=== PATIENT | male | born 1990 | race African-American/Black ===

== ENCOUNTER 2024-04-26 12:09 | Emergency (ER) | payer SELFPAY ==
[2024-04-26 12:09] VITALS: BP 125/97; PULSE 87; RESP 16; TEMP 37.3; O2SAT 98; BMI 26.7
[2024-04-26 12:22] VITALS: O2SAT 99
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
--- NOTE | 2024-04-26 12:57 | RAD_ITS ---
STUDY: X-RAY - LEFT TIBIA AND FIBULA REASON FOR EXAM: Male, 34 years old. Injury / Pain. TECHNIQUE: 2 views of the left tibia and fibula were obtained. COMPARISON: None. FINDINGS: Normal visualized tibia. Normal visualized fibula. There is no demonstrated acute fracture. The soft tissue structures are unremarkable. RAD/Tibia & Fibula 2 Views IMPRESSION: Normal x-ray examination of the left tibia and fibula. Electronically Signed: Davy Weber MD at 13:35 EDT ,
[2024-04-26] MEDS: Ibuprofen 600 MG Tablet PO (13:12)
[2024-04-26 14:09] VITALS: BP 119/82; PULSE 62; RESP 16; O2SAT 98
[2024-04-26 14:27] VITALS: BP 119/82; PULSE 62; RESP 16; TEMP 36.6; O2SAT 98
== END 2024-04-26 14:31 | disposition home or self-care (01) ==
PROVIDERS: Emergency Provider Emergency Medicine; Visit Provider Emergency Medicine
DX: S40.012A Contusion of left shoulder, initial encounter (principal); S46.912A Strain of unspecified muscle, fascia and tendon at shoulder and upper arm level, left arm, initial encounter; F17.210 Nicotine dependence, cigarettes, uncomplicated; V59.88XA Occupant (driver) (passenger) of pick-up truck or van injured in other specified transport accidents, initial encounter
CPT/HCPCS: 73590; 99282

== ENCOUNTER 2024-09-22 08:34 | Emergency (ER) | payer MEDICAID, SELFPAY ==
[2024-09-22] VITALS (7 sets, daily range): BP systolic 109–142; BP diastolic 75–95; PULSE 75–86; RESP 11–18; TEMP 36.8–37.1; O2SAT 96–99; BMI 28.1
--- NOTE | 2024-09-22 09:05 | RAD_ITS ---
PROCEDURE: CHEST 1 VIEW (PORTABLE) REASON FOR EXAM: 34-year-old male, chest pain/tightness x1 hour, history of asthma. TECHNIQUE: Frontal view of the chest. COMPARISON: None. FINDINGS: The heart size is normal. The lungs are clear. No focal consolidation, pleural effusion or pneumothorax. The bones are unremarkable. RAD/Chest 1 View (Portable) IMPRESSION: NEGATIVE CHEST. Reading Location: [id number]
[2024-09-22 09:15] LABS: Absolute Lymphocyte Count 1.88 X10^3/uL (0.83-4.51); Absolute Neutrophil Count 2.2 X10^3/uL (2.0-7.7); Basophil# 0.03 X10^3/uL; Basophil% 0.6 % (0-1); Eosinophils% 7.8 % (0-5); Hematocrit 39.8 % (40-54); Hemoglobin 12.6 g/dL (13.0-16.5); Lymphocyte # 1.88 X10^3/ul (0.83-4.51); Lymphocyte % 36.6 % (19-41); Mean Corp Hgb Conc 31.7 g/dL (32-36); Mean Corpuscular Hgb 23.3 pg (27.0-32.0); Mean Corpuscular Volume 73.7 fL (80-94); Mean Platelet Vol. 10.4 fl (6.2-12.0); Monocyte# 0.65 X10^3/uL; Monocyte% 12.7 % (0-10); NRBC Flagged by Analyzer 0 % (0-5); Neutrophil # 2.15 X10^3/uL (2.7-7.7); Neutrophil % 41.9 % (47-70); Platelet Count 209 K/mm3 (150-450); RBC Distribution Width CV 15.1 % (11.6-14.6); RBC Distribution Width SD 39.4 fl (35.1-43.9); White Blood Count 5.1 K/mm3 (4.4-11.0)
--- NOTE | 2024-09-22 10:13 | EDS_ITS ---
HPI History of Present Illness Chief Complaint: Chest Pain Informant: patient and spouse/S.O. Narrative Narrative: 34-year-old male presenting to the emergency room with the chief complaint of chest pain. Patient states that during the night he began to have what he describes as heartburn in the center of his chest. This morning he woke up suddenly with significant discomfort in the mid chest. He was not coughing. He denies any fever or diarrhea. No vomiting. No coronary artery disease history. He states that while he was in longterm he was diagnosed with sarcoidosis. He states that he was on medications for it then but has not been on any since. Yanira silvestre notes that multiple family members have been sick recently. He notes that he is not 1 who gets typical indigestion. PFSH PFSH Home Medications ?Medication ?Instructions ?Recorded ?Last Taken ?Type cyclobenzaprine 10 mg tablet 10 mg PO TID PRN Muscle S pasm #20 04/26/24 Unknown Rx TABLETS ibuprofen 600 mg tablet 600 mg PO Q6H PRN PRN pain # 20 04/26/24 Unknown Rx TABLETS omeprazole 20 mg capsule,delayed 20 mg PO BID #28 caps 09/22/24 Unknown Rx release Allergy/AdvReac Type Severity Reaction Status Date / Time No Known Allergies Allergy Verified 09/22/24 08:35 Social History Smoking Status: Current every day smoker tobacco type: cigarettes ROS ROS ED Constitutional Constitutional ED: Denies chills, fever(s) or weight loss Eyes Eyes: Denies change in vision or diplopia ENT ENT ED: Denies ear pain, rhinorrhea or sore throat Cardiovascular Cardiovascular: Reports chest pain; Denies orthopnea, palpitations or racing heartbeat Respiratory/Chest Respiratory/Chest: Denies cough, dyspnea or orthopnea Gastrointestinal Gastrointestinal: Denies abdominal pain, diarrhea, nausea or vomiting Genitourinary Genitourinary ED: Denies dysuria, hematuria or urinary frequency Musculoskeletal Musculoskeletal: Denies arthralgias or myalgias Integumentary Denies abscess or rash Neurologic Neurologic: Denies headache(s) or weakness Psychiatric Psychiatric: Denies anxiety, depression, suicidal ideation or suicidal thoughts Endocrine Endocrinology: Denies polydipsia, polyphagia or polyuria Allergic/Immunologic Allergic/Immunologic ED: Denies mouth swelling, tongue swelling or urticaria EXAM Physical Exam Const Vital Signs: 09/22/24 08:35 09/22/24 09:06 09/22/24 09:07 Temperature 98.7 F Temperature Source Oral Pulse Rate 86 Respiratory Rate 18 Respiratory Effort Normal Non-Labored Blood Pressure 142/88 H Blood Pressure Mean 106 Pulse Ox 98 98 Oxygen Delivery Method Room Air Room Air 09/22/24 09:35 09/22/24 10:00 09/22/24 11:00 Temperature Temperature Source Pulse Rate 76 75 75 Respiratory Rate 11 L 13 16 Respiratory Effort Blood Pressure 128/94 H 125/87 H 109/75 Blood Pressure Mean 105 99 86 Pulse Ox 96 96 97 Oxygen Delivery Method Room Air Room Air 09/22/24 12:00 09/22/24 12:10 Temperature 98.2 F Temperature Source Pulse Rate 75 81 Respiratory Rate 16 16 Respiratory Effort Blood Pressure 135/95 H 135/95 H Blood Pressure Mean 108 108 Pulse Ox 98 99 Oxygen Delivery Method Positive well nourished and well developed General Appearance ED: well developed HEENT Reports normocephalic, head/scalp atraumatic and moist mucous membranes Eyes PERRL and EOMs intact bilaterally Neck no lymphadenopathy, supple and no JVD Resp normal respiratory effort and clear to auscultation bilaterally Cardio regular rate, regular rhythm and no murmurs GI normal to inspection, nondistended, normoactive bowel sounds and non-tender Palpation: soft Back/Spine no CVA tenderness and normal ROM Extremity normal to inspection General Extremety ED: Negative for edema General Extremity: Negative for edema Neuro oriented x3 and CN's II-XII intact bilaterally Sensorium / Orientation: alert Motor Exam: strength 5/5 throughout Psych mental status grossly normal Mood & Affect: Negative for depressed or tearful Skin no rashes or lesions noted and no wounds MDM MDM MDM Narrative Medical decision making narrative: Differential diagnosis includes but not limited to GERD esophageal spasm coronary artery disease acute coronary syndrome pulmonary embolism aortic dissection pneumonia pneumothorax Patient received a GI cocktail and Protonix. Patient's white count is 5.1 hemoglobin 12.6 platelet count is 209. Patient's EKG demonstrates a normal sinus rhythm with a ventricular rate of 76 bpm with no concerning ST segments. My independent interpretation of the chest x-ray is no acute process. Patient is influenza A positive. 2 sets of cardiac enzymes are negative. D-dimer is elevated therefore CTA of the chest was obtained. This is read by radiology reviewed by myself. There is no evidence of pulmonary embolism. There is some evidence of pneumonitis. Question of this is related to the influenza versus a possible aspiration. Clinically he is not have any difficulty breathing his symptoms have subsided. His lung sounds are clear. Think is reasonable that the patient be discharged home. We talked about home treatment for influenza. Him also going to place him on omeprazole twice daily. We talked about e sophageal spasm as a possibility of his symptomology today versus aspiration versus resolved bronchospasm. When asked that he establish primary care follow- up if symptoms continue. He and his note understanding of the plan and comfortable with. History & Record Review Discussion w/independent historian: Patient and Significant other Lab Data Attestation: I reviewed the patient's lab results. Labs: Laboratory Results - last 24 hr 09/22/24 09/22/24 09/22/24 09:00 09:08 11:17 WBC 5.1 RBC 5.40 Hgb 12.6 L Hct 39.8 L MCV 73.7 L MCH 23.3 L MCHC 31.7 L RDW Std Deviation 39.4 RDW Coeff of Christiano 15.1 H Plt Count 209 MPV 10.4 Immature Gran % (Auto) 0.400 Neut % (Auto) 41.9 L Lymph % (Auto) 36.6 Gilchrist % (Auto) 12.7 H Eos % (Auto) 7.8 H Baso % (Auto) 0.6 Absolute Neuts (auto) 2.2 Absolute Lymphs (auto) 1.88 Nucleated RBC % 0 D-Dimer Quant (PE/DVT) 0.60 H* Sodium 141 Potassium 3.7 Chloride 106 Carbon Dioxide 28.0 Anion Gap 7 BUN 8 Creatinine 1.11 Estim Creat Clear Calc 97.08 Est GFR (MDRD) Af Amer 96 Est GFR (MDRD) Non-Af 80 BUN/Creatinine Ratio 7.2 L Glucose 108 H Calcium 8.5 Troponin I High Sens < 3 L < 3 L Radiography Diagnostic Testing: Clinical Impression(s) from Imaging Studies Chest X-Ray 09/22/24 09:05 IMPRESSION: NEGATIVE CHEST. Reading Location: [facility] Chest CTA 09/22/24 10:37 IMPRESSION: 1. No CT evidence of acute pulmonary emboli. 2. Mild bronchial wall thickening and bilateral centrilobular ground-glass opacities, which is nonspecific and may be seen in infectious/inflammatory pneumonitis, or be secondary to allergic bronc hopulmonary aspergillosis (ABPA). Clinical and laboratory correlation recommended. 3. Left upper lobe pulmonary nodule, likely infectious/inflammatory in etiology. Correlation with prior chest imaging is recommended if available. If not available, follow-up chest CT in 3 months is recommended to evaluate for stability/resolution. One or more dose reduction techniques were used (e.g., Automated exposure control, adjustment of the mA and/or kV according to patient size, use of iterative reconstruction technique). Reading Location: [facility] EKG Initial EKG: Attestation: I personally reviewed and interpreted this EKG as follows: Comments: Normal sinus rhythm ventricular rate of 76 bpm Discharge Plan Triage Chief Complaint: Chest Pain ED Provider: Eric Fishman Dx/Rx/DC Orders Clinical Impression: Influenza A, GERD (gastroesophageal reflux disease), Esophageal spasm Instructions: ED GERD (Adult), ED Influenza (Adult) Prescriptions: New omeprazole 20 mg capsule,delayed release(DR/EC) 20 mg PO BID Qty: 28 0RF No Action ibuprofen 600 mg tablet 600 mg PO Q6H PRN PRN (Reason: pain) Qty: 20 0RF cyclobenzaprine 10 mg tablet 10 mg PO TID PRN (Reason: Muscle Spasm) Qty: 20 0RF Primary Care Provider: Care Physician,No Primary Referrals: Doug Lr DO [Med Staff - Active Staff] - As Needed (For gastroenterology) Care Physician,No Primary [Primary Care Provider] - Activity Restrictions/Additional Instructions: If continued symptoms I would strongly recommend following up with gastroenterology (see the referral to Dr. Lr) for possible EGD. Given your history of sarcoidosis I would recommend establishing with a primary care doctor. Print Language: Turkish Disposition Disposition: Home, Self Care Discharge Date/Time: 09/22/24 12:17
[2024-09-22 10:15] LABS: Anion Gap 7 (5-15); BUN 8 mg/dL (7-18); BUN/Creat Ratio 7.2 RATIO (10-20); Calcium,Total 8.5 mg/dL (8.5-10.1); Chloride 106 mmol/L (98-107); Creatinine, Serum 1.11 mg/dL (0.70-1.30); EST Glomerular Filtration Rate 80 mL/min (>60); Est Glom Filt Rate - Afr Amer 96 mL/min (>60); Estimated Creatinine Clearance 97.08 ml/min; Glucose 108 mg/dL (74-106); Potassium 3.7 mmol/L (3.5-5.1); Sodium Level 141 mmol/L (136-145); Troponin-I HS (w/2H Reflex) < 3 pg/mL (3.0-78.0)
[2024-09-22] MEDS: Mag Hydrox/Al Hydrox/Simeth 30 ML UDC PO (10:24)
[2024-09-22] MEDS: Lidocaine 2% Viscous15 ML UDC 15 ML PO (10:24)
--- NOTE | 2024-09-22 10:37 | CT_ITS ---
PROCEDURE: CTA CHEST W/WO CONTRAST REASON FOR EXAM: 34-year-old male, concern for pulmonary embolism. TECHNIQUE: CTA imaging of the chest with intravenous contrast. 3D reconstructions. CONTRAST: Administered. COMPARISON: Same day chest radiograph. FINDINGS: Hardware: None. Lymph nodes: No mediastinal, hilar or axillary lymphadenopathy. Heart: The heart is normal in size without pericardial effusion. No coronary artery calcifications. The great vessels are normal in caliber. RV/LV Diameter Ratio: N/A Thoracic Aorta: No thoracic aortic aneurysm or dissection. Pulmonary Vessels: No evidence of acute pulmonary emboli through the major subsegmental branches. Most Proximal Level of Embolus (if embolus present): N/A Lungs and Airways: The central airways are patent. Mild bronchial wall thickening and bilateral centrilobular ground-glass opacities, greatest within the upper lobes. Small left upper lobe pulmonary nodule measuring 1.1 cm (series 2, image 206). No pleural effusion or pneumothorax. Upper Abdomen: Visualized portions of the upper abdominal viscera are unremarkable. Bones: No aggressive osseous lesion. CT/CTA Chest W/WO Contrast IMPRESSION: 1. No CT evidence of acute pulmonary emboli. 2. Mild bronchial wall thickening and bilateral centrilobular ground-glass opac ities, which is nonspecific and may be seen in infectious/inflammatory pneumonitis, or be secondary to allergic bronchopulmona ry aspergillosis (ABPA). Clinical and laboratory correlation recommended. 3. Left upper lobe pulmonary nodule, likely infectious/inflammatory in etiology . Correlation with prior chest imaging is recommended if available. If not available, follow-up chest CT in 3 months is recommended to evaluate for stability/resolution. One or more dose reduction techniques were used (e.g., Automated exposure contr ol, adjustment of the mA and/or kV according to patient size, use of iterative reconstruction technique). Reading Location: [id number]
[2024-09-22] MEDS: Pantoprazole Sodium 40 MG Tablet PO (11:06)
[2024-09-22 11:12] LABS: Reflex Troponin-HS? (from REC) Y
[2024-09-22 11:38] LABS: Troponin-I HS < 3 pg/mL (3.0-78.0)
== END 2024-09-22 12:17 | disposition home or self-care (01) ==
PROVIDERS: Emergency Provider Emergency Medicine; Visit Provider Emergency Medicine
DX: J10.1 Influenza due to other identified influenza virus with other respiratory manifestations (principal); K21.9 Gastro-esophageal reflux disease without esophagitis; K22.4 Dyskinesia of esophagus; F17.210 Nicotine dependence, cigarettes, uncomplicated
CPT/HCPCS: 71045; 71275; 80048; 84484; 85025; 85379; 87631; 93005; 99285; Q9967

== ENCOUNTER 2025-04-11 21:36 | Emergency (ER) | payer MEDICAID, SELFPAY ==
[2025-04-11 21:37] VITALS: BP 119/66; PULSE 89; RESP 14; TEMP 37; O2SAT 98
--- OUTSIDE RECORDS SUMMARY | 2025-04-11 22:20 | XMS RPT_ITS | CCD ---
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 [facility] CTPCRon 02-15-2024 C. trachomatis Interp Normal See CT Interp N [facility] ([place]) Comment on above: Result Comment: C. t rachomatis DNA not detected. Specimen is presumptive negative for C. trachomatis. A negative result does not preclude C. trachomatis infection because results depend on adequate specimen collection, absence of inhibitors, and sufficient DNA to be detected. See CT Interp N Performed By: #### C TPCR, NGPCR1 #### [address] [address] C.trachomatis PCR Negative Normal Negative [facility] ([place]) Comment on above: Result Comment: Mole cular (PCR) assay performed on the Ana M Mae 4800 system. Performed By: #### C TPCR, NGPCR1 #### [address] [address] Chlam Source Urine Normal [facility] ([place]) Comment on above: Performed By: #### C TPCR, NGPCR1 #### [address] [address] FTVHV2ox 02-15-2024 GC PCR Source Urine Normal [facility] ([place]) Comment on above: Performed By: #### C TPCR, NGPCR1 #### [address] [address] N. gonorrhoeae (PCR) Negative Normal Negative [facility] ([place]) Comment on above: Result Comment: Mole cular (PCR) assay performed on the Ana M Mae 4800 System. Performed By: #### C TPCR, NGPCR1 #### [address] [address] N. gonorrhoeae Interp Normal See NG Interp N [facility] ([place]) Comment on above: Result Comment: N. g onorrhoeae DNA not detected. Specimen is presumptive negative for N. gonorrhoeae. A negative result does not preclude Neisseria gonorrhoeae infection because results depend on adequate specimen collection, absence of inhibitors, and sufficient DNA to be detected. See NG Interp N Performed By: #### C TPCR, NGPCR1 #### [address] [address] UAon 02-14-2024 Color (U) Straw Normal [facility] ([place]) Comment on above: Performed By: #### U A #### [address] [place], [place] [address] Glucose (U) [Mass/Vol] Negative Normal Negative [facility] ([place]) Comment on above: Performed By: #### U A #### [address] [place], [place] [address] Ketones Ql (U) Negative Normal [facility] [place]) Comment on above: Performed By: #### U A #### [address] [place], [place] [address] UA Appear Clear Normal [facility] ([place]) Comment on above: Performed By: #### U A #### [address] [place], [place] [address] UA Blood Negative Normal Neg-Trace [facility] ([place]) Comment on above: Performed By: #### U A #### [address] [place], [place] [address] UA Leuk Est Negative Normal Negative [facility] ([place]) Comment on above: Performed By: #### U A #### [address] [place], [place] [address] UA Nitrite Negative Normal Negative [facility] ([place]) Comment on above: Performed By: #### U A #### [address] [place], [place] [address] UA pH 7.0 Normal 5.0 - 8.0 [facility] ([place]) Comment on above: Performed By: #### U A #### [address] [place], [place] [address] UA Protein Negative Normal Negative [facility] ([place]) Comment on above: Performed By: #### U A #### [address] [place], [place] [address] UA Spec Grav 1.015 Normal [facility] ([place]) Comment on above: Performed By: #### U A #### [address] [place], [place] [address] UA Specimen Type Clean Catch Normal [facility] ([place]) Comment on above: Performed By: #### U A #### [address] [place], [place] [address] UA Urobilinogen 0.2 E.U./dL Normal [facility] ([place]) Comment on above: Performed By: #### U A #### [address] [place], [place] [address] Urobilinogen (U) [Mass/Vol] Negative Normal Neg-Trace [facility] ([place]) Comment on above: Performed By: #### U A #### [address] [place], [place] [address] XR Chest PA and Lateralon IMPRESSION: No acute abnormalities. Medical Billing Coordinator: PSCHenri Transcribe Date/Time: Jul 14 2023 9:04A Dictated by : YUDI TOMLINSON MD This examination was interpreted and the report reviewed and electronically signed by: YUDI TOMLINSON MD on Jul 14 2023 9:05AM EST [facility] * * *Final Report* * * DATE OF EXAM: Jul 12 2023 9:14PM RNX [id number] - XR CHEST 2V FRONTAL/LAT / PROCEDURE REASON: SOB (shortness of breath) * * * * Physician Interpretation * * * * EXAMINATION: CHEST RADIOGRAPH (2 VIEW FRONTAL & LATERAL) CLINICAL HISTORY: SOB (shortness of breath) MQ: XC2_6 EXAM DATE/TIME: 07/12/2023 9:14 PM COMPARISON: No relevant prior studies available. RESULT: Lines, tubes, and devices: None. Lungs and pleura: The costophrenic angles are clear. No acute infiltrates or congestion is seen. Cardiomediastinal silhouette: The heart and mediastinum show no acute abnormalities. Bones and soft tissues: There are no acute osseous abnormalities. [facility] Provider, [facility] Lisha Ardon - 07/14/2023 * * *Final Report* * * DATE OF EXAM: Jul 12 2023 9:14PM RNX [id number] - XR CHEST 2V FRONTAL/LAT / PROCEDURE REASON: SOB (shortness of breath) * * * * Physician Interpretation * * * * EXAMINATION: CHEST RADIOGRAPH (2 VIEW FRONTAL & LATERAL) CLINICAL HISTORY: SOB (shortness of breath) MQ: XC2_6 EXAM DATE/TIME: 07/12/2023 9:14 PM COMPARISON: No relevant prior studies available. RESULT: Lines, tubes, and devices: None. Lungs and pleura: The costophrenic angles are clear. No acute infiltrates or congestion is seen. Cardiomediastinal silhouette: The heart and mediastinum show no acute abnormalities. Bones and soft tissues: There are no acute osseous abnormalities. IMPRESSION IMPRESSION: No acute abnormalities. Medical Billing Coordinator: BENJAMÍN Transcribe Date/Time: Jul 14 2023 9:04A Dictated by : YUDI TOMLINSON MD This examination was interpreted and the report reviewed and electronically signed by: YUDI TOMLINSON MD on Jul 14 2023 9:05AM EST [facility] XR Chest PA and LateralOrder ed By: [facility] Provider on 07-14-2023 [facility] Basic metabolic 2000 panelon 07-13-2023 Anion gap [Moles/Vol] 10 mmol/L Normal 5-16 [facility] Comment on above: Order Comment: J Carlos denson Type: BLOOD SPECIMEN Ordering Facility: [facility] Address: [address] [place] [address] Performed By: #### 2 4321-2, 33303-0 #### [facility] CLIA [id number] [address] [place] [address] [place] Calcium [Mass/Vol] 9.4 mg/dL Normal 8.5-10.5 [facility] Comment on above: Order Comment: J Carlos denson Type: BLOOD SPECIMEN Ordering Facility: [facility] Address: [address] [place] [address] Performed By: #### 2 4321-2, 34655-0 #### [facility] CLIA [id number] [address] [place], [place] [address] [place] Chloride [Moles/Vol] 103 mmol/L Normal 98-107 [facility] Comment on above: Order Comment: J Carlos denson Type: BLOOD SPECIMEN Ordering Facility: [facility] Address: [address] [place] [address] Performed By: #### 2 4321-2, 01556-9 #### [facility] CLIA [id number] [address] [place], [place] [address] [place] CO2 [Moles/Vol] 25 mmol/L Normal 21-32 [facility] Comment on above: Order Comment: J Carlos denson Type: BLOOD SPECIMEN Ordering Facility: [facility] Address: [address] [place] [address] Performed By: #### 2 4321-2, 93094-3 #### [facility] CLIA [id number] [address] [place] [address] [place] Creatinine [Mass/Vol] 1.66 mg/dL High 0.50-1.40 [facility] Comment on above: Order Comment: Speci men Type: BLOOD SPECIMEN Ordering Facility: [facility] Address: [address] [place] [address] Result Comment: Hannah ents receiving either N-Acetylcysteine (NAC) or Metamizole prior to venipuncture, may have falsely depressed results. Performed By: #### 2 4321-2, 46902-4 #### [facility] CLIA [id number] [address] [place] [address] OF [facility] Creatinine and Glomerular filtration rate.predicted panel (S/P/Bld) 55 mL/min/1.73m??? Low >=60 [facility] Comment on above: Order Comment: J Carlos denson Type: BLOOD SPECIMEN Ordering Facility: [facility] Address: [address] [place] [address] Result Comment: Sita mated Glomerular Filtration Rate (eGFR) is calculated using the 2020 CKD-EPI creatinine equation. This equation utilizes serum creatinine, sex, and age as parameters. The creatinine assay has traceable calibration to isotope dilution-mass spectrometry. Refer to KDIGO guidelines for clinical interpretation. In patients with unstable renal function, e.g. those with acute kidney injury, the eGFR may not accurately reflect actual GFR. Performed By: #### 2 4321-2, 82799-0 #### [facility] CLIA [id number] [address] [place] [address] [place] Glucose [Mass/Vol] 85 mg/dL Normal 70-100 [facility] Comment on above: Order Comment: J Carlos denson Type: BLOOD SPECIMEN Ordering Facility: [facility] Address: [address] [place] [address] Result Comment: The [place] Diabetes Association (ADA) provides guidance for cutoff values for fasting glucose and random glucose. The ADA defines fasting as no caloric intake for at least 8 hours. Fasting plasma glucose results between 100 to 125 mg/dL indicate increased risk for diabetes (prediabetes). Fasting plasma glucose results greater than or equal to 126 mg/dL meet the criteria for diagnosis of diabetes. In the absence of unequivocal hyperglycemia, results should be confirmed by repeat testing. In a patient with classic symptoms of hyperglycemia or hyperglycemic crisis, random plasma glucose results greater than or equal to 200 mg/dL meet the criteria for diagnosis of diabetes. Reference: Standards of Medical Care in Diabetes 2016, [place] [employer]. Diabetes Care. 2016.39(Suppl 1). Results may be falsely elevated after the administration of Sulfapyridine. Results may be falsely depressed after the administration of Sulfasalazine. Performed By: #### 2 4321-2, 98973-3 #### [facility] CLIA [id number] [address] [place] [address] [place] Potassium [Moles/Vol] 3.9 mmol/L Normal 3.5-5.1 [facility] Comment on above: Order Comment: Speci men Type: BLOOD SPECIMEN Ordering Facility: [facility] Address: [address] [place] [address] Performed By: #### 2 4321-2, 16705-9 #### [facility] CLIA [id number] [address] [place] [address] [place] Sodium [Moles/Vol] 138 mmol/L Normal 136-145 [facility] Comment on above: Order Comment: Speci men Type: BLOOD SPECIMEN Ordering Facility: [facility] Address: [address] [place] [address] Performed By: #### 2 4321-2, 82257-3 #### [facility] CLIA [id number] [address] [place] [address] [place] Urea nitrogen [Mass/Vol] 19 mg/dL Normal 7-26 [facility] Comment on above: Order Comment: Speci men Type: BLOOD SPECIMEN Ordering Facility: [facility] Address: [address] [place] [address] Performed By: #### 2 4321-2, 16237-2 #### [facility] CLIA [id number] [address] [place] [address] [place] CBC W Auto Differential pane l (Bld)on 07-13-2023 Basophils (Bld) [#/Vol] 10*3/uL Normal <0.11 [facility] Comment on above: Order Comment: Speci men Type: BLOOD SPECIMEN Ordering Facility: [facility] Address: [address] [place] [address] Performed By: #### 5 7021-8 #### [facility] CLIA [id number] [address] [place] [address] [place] Basophils/100 WBC (Bld) 0.3 % Normal [facility] Comment on above: Order Comment: Speci men Type: BLOOD SPECIMEN Ordering Facility: [facility] Address: [address] [place] [address] Performed By: #### 5 7021-8 #### [facility] CLIA [id number] [address] [place] [address] [place] Differential cell count method Nom (Bld) Auto Normal [facility] Comment on above: Order Comment: Speci men Type: BLOOD SPECIMEN Ordering Facility: [facility] Address: [address] [place] [address] Performed By: #### 5 7021-8 #### [facility] CLIA [id number] [address] [place] [address] [place] Eosinophils (Bld) [#/Vol] 10*3/uL Normal <0.46 [facility] Comment on above: Order Comment: Speci men Type: BLOOD SPECIMEN Ordering Facility: [facility] Address: [address] [place] [address] Performed By: #### 5 7021-8 #### [facility] CLIA [id number] [address] [place] [address] [place] Eosinophils/100 WBC (Bld) 0.0 % Normal [facility] Comment on above: Order Comment: Speci men Type: BLOOD SPECIMEN Ordering Facility: [facility] Address: [address] [place] [address] Performed By: #### 5 7021-8 #### [facility] CLIA [id number] [address] [place] [address] [place] Erythrocyte distribution width (RBC) [Ratio] 17.7 % High 11.5-15.0 [facility] Comment on above: Order Comment: Speci men Type: BLOOD SPECIMEN Ordering Facility: [facility] Address: [address] [place] [address] Performed By: #### 5 7021-8 #### [facility] CLIA [id number] [address] [place] [address] [place] Hematocrit (Bld) [Volume fraction] 46.3 % Normal 39.0-51.0 [facility] Comment on above: Order Comment: Speci men Type: BLOOD SPECIMEN Ordering Facility: [facility] Address: [address] [place] [address] Performed By: #### 5 7021-8 #### [facility] CLIA [id number] [address] [place] [address] [place] Hemoglobin (Bld) [Mass/Vol] 14.9 g/dL Normal 13.0-17.0 [facility] Comment on above: Order Comment: Speci men Type: BLOOD SPECIMEN Ordering Facility: [facility] Address: [address] [place] [address] Performed By: #### 5 7021-8 #### [facility] CLIA [id number] [address] [place] [address] [place] Immature granulocytes (Bld) [#/Vol] 10*3/uL Normal <0.10 [facility] Comment on above: Order Comment: Speci men Type: BLOOD SPECIMEN Ordering Facility: [facility] Address: [address] [place] [address] Performed By: #### 5 7021-8 #### [facility] CLIA [id number] [address] [place] [address] [place] Immature granulocytes/100 WBC (Bld) 0.3 % Normal [facility] Comment on above: Order Comment: Speci men Type: BLOOD SPECIMEN Ordering Facility: [facility] Address: [address] [place] [address] Performed By: #### 5 7021-8 #### [facility] CLIA [id number] [address] [place] [address] [place] Lymphocytes (Bld) [#/Vol] 1.20 10*3/uL Normal 1.00-4.00 [facility] Comment on above: Order Comment: Speci men Type: BLOOD SPECIMEN Ordering Facility: [facility] Address: [address] [place] [address] Performed By: #### 5 7021-8 #### [facility] CLIA [id number] [address] [place] [address] [place] Lymphocytes/100 WBC (Bld) 21.0 % Normal [facility] Comment on above: Order Comment: Speci men Type: BLOOD SPECIMEN Ordering Facility: [facility] Address: [address] [place] [address] Performed By: #### 5 7021-8 #### [facility] CLIA [id number] [address] [place] [address] [place] MCH (RBC) [Entitic mass] 22.9 pg Low 26.0-34.0 [facility] Comment on above: Order Comment: Speci men Type: BLOOD SPECIMEN Ordering Facility: [facility] Address: [address] [place] [address] Performed By: #### 5 7021-8 #### [facility] CLIA [id number] [address] [place] [address] [place] MCHC (RBC) [Mass/Vol] 32.2 g/dL Normal 30.5-36.0 [facility] Comment on above: Order Comment: Speci men Type: BLOOD SPECIMEN Ordering Facility: [facility] Address: [address] [place] [address] Performed By: #### 5 7021-8 #### [facility] CLIA [id number] [address] [place] [address] [place] MCV (RBC) [Entitic vol] 71.1 fL Low 80.0-100.0 [facility] Comment on above: Order Comment: Speci men Type: BLOOD SPECIMEN Ordering Facility: [facility] Address: [address] [place] [address] Performed By: #### 5 7021-8 #### [facility] [place] [id number] [address] [place] [address] [place] Monocytes (Bld) [#/Vol] 0.86 10*3/uL Normal <0.87 [facility] Comment on above: Order Comment: Speci men Type: BLOOD SPECIMEN Ordering Facility: [facility] Address: [address] [place] [address] Performed By: #### 5 7021-8 #### [facility] IA [id number] [address] [place] [address] [place] Monocytes/100 WBC (Bld) 15.0 % Normal [facility] Comment on above: Order Comment: Speci men Type: BLOOD SPECIMEN Ordering Facility: [facility] Address: [address] [place] [address] Performed By: #### 5 7021-8 #### [facility] IA [id number] [address] [place] [address] [place] Neutrophils (Bld) [#/Vol] 3.62 10*3/uL Normal 1.45-7.50 [facility] Comment on above: Order Comment: Speci men Type: BLOOD SPECIMEN Ordering Facility: [facility] Address: [address] [place] [address] Performed By: #### 5 7021-8 #### [facility] [place] [id number] [address] [place] [address] [place] Neutrophils/100 WBC (Bld) 63.4 % Normal [facility] Comment on above: Order Comment: Speci men Type: BLOOD SPECIMEN Ordering Facility: [facility] Address: [address] [place] [address] Performed By: #### 5 7021-8 #### [facility] CLIA [id number] [address] [place], [place] [address] [place] Nucleated RBC (Bld) [#/Vol] 10*3/uL Normal <0.01 [facility] Comment on above: Order Comment: Speci men Type: BLOOD SPECIMEN Ordering Facility: [facility] Address: [address] [place] [address] Performed By: #### 5 7021-8 #### [facility] CLIA [id number] [address] [place] [address] [place] Nucleated RBC/100 WBC (Bld) [Ratio] 0.0 /[address] [facility] Comment on above: Order Comment: Speci men Type: BLOOD SPECIMEN Ordering Facility: [facility] Address: [address] [place] [address] Performed By: #### 5 7021-8 #### [facility] CLIA [id number] [address] [place] [address] [place] Platelet mean volume (Bld) [Entitic vol] 10.2 fL Normal 9.0-12.7 [facility] Comment on above: Order Comment: Speci men Type: BLOOD SPECIMEN Ordering Facility: [facility] Address: [address] [place] [address] Performed By: #### 5 7021-8 #### [facility] CLIA [id number] [address] [place] [address] [place] Platelets (Bld) [#/Vol] 194 10*3/uL Normal 150-400 [facility] Comment on above: Order Comment: Speci men Type: BLOOD SPECIMEN Ordering Facility: [facility] Address: [address] [place] [address] Performed By: #### 5 7021-8 #### [facility] CLIA [id number] [address] [place] [address] [place] RBC (Bld) [#/Vol] 6.51 10*6/uL High 4.20-6.00 [facility] Comment on above: Order Comment: Speci men Type: BLOOD SPECIMEN Ordering Facility: [facility] Address: [address] [place] [address] Performed By: #### 5 7021-8 #### [facility] CLIA [id number] [address] [place], [place] [address] [facility] WBC (Bld) [#/Vol] 5.72 10*3/uL Normal 3.70-11.00 [facility] Comment on above: Order Comment: Speci men Type: BLOOD SPECIMEN Ordering Facility: [facility] Address: [place] [address] Performed By: #### 5 7021-8 #### [facility] CLIA [id number] [address] [place], [place] [address] [facility] ED PROV NOTEon 07-13-2023 ED PROV NOTE HNO ID: [id number] Author: Mateo Mtz, Service: ? Author Type: Physician Type: ED Provider Notes Filed: 07/13/2023 12:29 AM Note Text: ED Provider Note Patient Name: Roland Wang : 1990 SERVICE DATE: 07/12/23 History Patient presents with: Shortness of Breath: Shortness of breath since Monday with dizziness. Patient was at [facility] [facility] and was sent here. Pt has pmhx of asthma and sarcoidosis. Patient is a 33-year-old male presenting to the emergency department secondary to cough, congestion, rhinorrhea, body aches, fevers and chills. Symptoms have been present over the past 2 days. He has had some nausea and vomiting. Emesis has been nonbloody and nonbilious. Denies any other acute complaints at this time. Patient initially seen at [facility] and was referred to the emergency department. Chest x-ray was performed at [facility]. History provided by: Patient PAST MEDICAL HISTORY Diagnosis Date Asthma Pulmonary sarcoidosis (HCC) No past surgical history on file. No family history on file. Social History Tobacco Use Smoking status: Never Smokeless tobacco: Never Vaping Use Vaping Use: Former Substance and Sexual Activity Alcohol use: Not Currently Drug use: Yes Types: Marijuana Sexual activity: Not on file ALLERGIES No Known Allergies Review of Systems All other systems reviewed and are negative. Physical Exam Vitals [07/12/234] BP Pulse Temp Temp src Resp SpO2 Weight Height 116/82 (!) 95 37.2 ?C (99 ?F) Oral 20 98 % 79.4 kg (175 lb) 1.727 m (5' 8) Physical Exam Vitals and nursing note reviewed. Constitutional: General: He is not in acute distress. Appearance: He is ill-appearing. He is not toxic-appearing. HENT: Right Ear: Tympanic membrane normal. Left Ear: Tympanic membrane normal. Nose: Congestion and rhinorrhea present. Mouth/Throat: Mouth: Mucous membranes are dry. Pharynx: Oropharynx is clear. No oropharyngeal exudate. Eyes: Extraocular Movements: Extraocular movements intact. Pupils: Pupils are equal, round, and reactive to light. Cardiovascular: Rate and Rhythm: Regular rhythm. Tachycardia present. Pulses: Normal pulses. Heart sounds: Normal heart sounds. No murmur heard. Pulmonary: Effort: Pulmonary effort is normal. No respiratory distress. Breath sounds: Normal breath sounds. Abdominal: General: Abdomen is flat. Bowel sounds are normal. There is no distension. Palpations: Abdomen is soft. Tenderness: There is no abdominal tenderness. Musculoskeletal: General: Tenderness (Diffuse muscular tenderness) present. Right lower leg: No edema. Left lower leg: No edema. Skin: General: Skin is warm and dry. Capillary Refill: Capillary refill takes less than 2 seconds. Findings: No rash. Neurological: Mental Status: He is alert and oriented to person, place, and time. Diagnostic Testing ED Labs Ordered and Reviewed CBC + DIFF - Abnormal; Notable for the following components: Result Value Ref Range RBC 6.51 (*) 4.20 - 6.00 m/uL MCV 71.1 (*) 80.0 - 100.0 fL MCH 22.9 (*) 26.0 - 34.0 pg RDW-CV 17.7 (*) 11.5 - 15.0 % All other components within normal limits BASIC METABOLIC PNL - Abnormal; Notable for the following components: Creatinine 1.66 (*) 0.50 - 1.40 mg/dL Estimated Glomerular Filtration Rate 55 (*) >=60 mL/min/1.73m? All other components within normal limits EXPANDED RESPIRATORY PATHOGEN PANEL BY PCR (WITH COVID), EXPEDITED - Abnormal; Notable for the following components: Influenza B Virus Detected (*) Not detected All other components within normal limits PROCALCITONIN (LAB) - Normal Procedures ED Course / Clinical Impression Clinical Impressions as of 07/13/23 0025 Influenza B CHANTELL (acute kidney injury) (HCC) Myalgias COVID-19 test performed per [facility] [place] policy for suspected COVID community exposure. MDM / Disposition / Plan Patient is a 33-year-old male presenting to the emergency department secondary to cough, congestion, rhinorrhea, body aches, fevers and chills. Symptoms have been present over the past 2 days. He has had some nausea and vomiting. Emesis has been nonbloody and nonbilious. Denies any other acute complaints at this time. Patient initially seen at [facility] and was referred to the emergency department. Chest x-ray was performed at [facility]. Here in the emergency department, patient's chest x-ray was reviewed from [facility], there are some mild hazy infiltrates in the bases appear consistent with a viral pattern. No focal consolidations noted. Respiratory viral panel was positive for influenza B. CBC unremarkable, no leukocytosis, no anemia, no left shift or bandemia. BMP shows elevated creatinine of 1.66. Procalcitonin level normal at 0.06. Patient was given 2 L of IV normal saline here in the emergency department. He was given Tylenol for his myalgias, he was given his first dose of Tamiflu. P (more content not included)... Normal [facility] ED Triage Noteon 07-13-2023 ED Triage Note HNO ID: [id number] Author: Eddie Morris PA-C Service: ? Author Type: Physician [employer] Type: ED Triage Notes Filed: 07/12/2023 10:10 PM Note Text: ED INTAKE NOTE Patient Name: Roland Wang Service Date: 07/12/23 BRIEF HPI:Patient is a 33-year-old male with history of sarcoidosis and asthma. Complains of 3 days of shortness of breath, fever, chills, lightheadedness, nasal congestion, nonproductive cough, headache, and diarrhea. Was given DuoNeb and Statcare and sent here for evaluation. BRIEF EXAM: Awake and Alert RRR CTAB, no respiratory distress, no tachypnea, no accessory muscle use Abd soft/NT/ND; no rebound/guarding STREET INTAKE WORKUP: IV labs, respiratory PCR, aerosols, prednisone Chest x-ray from [facility] was reviewed by myself. I did not appreciate any infiltrates, pneumothorax, or consolidation SIGNATURE: Eddie Morris PA-C Normal [facility] Procalcitonin SerPl-mCncon 1 09-13-2022 Procalcitonin [Mass/Vol] 0.06 ng/mL Normal 0.00-0.50 [facility] Comment on above: Order Comment: Speci men Type: BLOOD SPECIMEN Ordering Facility: [facility] Address: [address] [place], [place] [address] Result Comment: PCT Concentration Interpretation PCT <=0.1 ng/mL: Normal range for healthy adults PCT >0.1 ng/mL and <0.5 ng/mL: Systemic infection (sepsis) is possible and may require antibiotic treatment, but other conditions are known to elevate PCT as well. PCT >0.5 ng/mL: Should be considered at risk for developing severe sepsis or septic shock. PCT >2.0 ng/mL: Important systemic inflammatory response. Almost exclusively indicates episode of severe bacterial sepsis or septic shock. Performed By: #### 2 4321-2, 22041-9 #### [facility] CLIA [id number] [address] [place] [address] [place] Resp path 12b Pnl Spec KAYLA+p [facility] 07-13-2023 Respiratory pathogens DNA and RNA 12b panel KAYLA+probe (Unsp spec) ADENOVIRUS: Not detected CORONAVIRUS 229E: Not detected CORONAVIRUS HKU1: Not detected CORONAVIRUS NL63: Not detected CORONAVIRUS OC43: Not detected COVID 19 RESULT: Not detected Reference Range (the expected result in uninfected individuals): Not detected HUMAN METAPNEUMOVIRUS: Not detected RHINOVIRUS/ENTEROVIRU S: Not detected INFLUENZA A VIRUS: Not detected INFLUENZA B VIRUS: Detected PARAINFLUENZA VIRUS 1: Not detected PARAINFLUENZA VIRUS 2: Not detected PARAINFLUENZA VIRUS 3: Not detected PARAINFLUENZA VIRUS 4: Not detected RESPIRATORY SYNCYTIAL VIRUS: Not detected BORDETELLA PARAPERTUSSIS BY REAL-TIME PCR: Not detected BORDETELLA PERTUSSIS BY REAL-TIME PCR: Not detected CHLAMYDOPHILA PNEUMONIAE: Not detected MYCOPLASMA PNEUMONIAE: Not detected Abnormal [facility] Comment on above: Performed By: #### 6 0566-7 #### [facility] CLIA [id number] [address] [place] [address] [place] CNOVon 07-12-2023 CNOV Office Visit ([facility] ) ROLAND WANG ([id number]) 1990 M Date Time Provider Department 07/12/23 8:15 PM ROSALIND LORD [facility] During your visit today, we recorded the following information about you: Temperature Pulse Respiration Blood pressure 100.6 degrees 73/minute 28/minute 110/73 Weight 78.9 kg Rosalind Lord APRN.RETREAD OPERATOR 07/12/2023 9:16 PM Signed HPI: Roland Gisele Gio is a 33 year old male who presents with 3-day history of fever, chills, dizziness and lightheadedness, headache, nasal congestion and drainage, nonproductive cough, shortness of breath, and diarrhea. He is short of breath at rest and with minimal exertion. Feels rhonchorous but is unable to bring up secretions. Patient has a history of sarcoidosis and asthma. He has been using his rescue inhaler without improvement in his symptoms. He denies known sick contacts, nausea, vomiting, and abdominal pain, sore throat. No past medical history on file. There is no problem list on file for this patient. No current outpatient medications on file. No current facility-administered medications for this visit. Alcohol Use: Not on file Tobacco Use: Not on file No family history on file. Review of Systems Constitutional: Positive for chills and fever. Negative for diaphoresis, malaise/fatigue and weight loss. HENT: Positive for congestion. Negative for ear discharge, ear pain, hearing loss, nosebleeds, sinus pain, sore throat and tinnitus. Eyes: Negative. Respiratory: Positive for cough, sputum production and shortness of breath. Negative for hemoptysis, wheezing and stridor. Cardiovascular: Negative. Gastrointestinal: Positive for diarrhea. Negative for abdominal pain, blood in stool, constipation, heartburn, melena, nausea and vomiting. Genitourinary: Negative. Musculoskeletal: Negative. Skin: Negative. Neurological: Positive for dizziness and headaches. Negative for tingling, tremors, sensory change, speech change, focal weakness, seizures, loss of consciousness and weakness. Endo/Heme/Allergies: Negative. Psychiatric/Behaviora l: Negative. All other systems reviewed and are negative. BP 110/73 Pulse 73 Temp 100.6 Resp 28 Wt 174 lb (78.9kg) SpO2 98% Physical Exam Vitals and nursing note reviewed. Constitutional: General: He is not in acute distress. Appearance: Normal appearance. He is normal weight. He is not ill-appearing or toxic-appearing. HENT: Head: Normocephalic. Right Ear: Tympanic membrane, ear canal and external ear normal. Left Ear: Tympanic membrane, ear canal and external ear normal. Nose: Congestion present. Mouth/Throat: Mouth: Mucous membranes are moist. Pharynx: No oropharyngeal exudate or posterior oropharyngeal erythema. Eyes: Extraocular Movements: Extraocular movements intact. Conjunctiva/sclera: Conjunctivae normal. Pupils: Pupils are equal, round, and reactive to light. Cardiovascular: Rate and Rhythm: Normal rate and regular rhythm. Heart sounds: Normal heart sounds. Pulmonary: Effort: Respiratory distress present. Breath sounds: Normal breath sounds. No wheezing or rhonchi. Skin: General: Skin is warm and dry. Neurological: Mental Status: He is alert and oriented to person, place, and time. Clinical Impression ICD-10-CM 1. SOB (shortness of breath) R06.02 albuterol 2.5 mg /3 mL (0.083 %) 2.5 mg (PROVENTIL) ipratropium 0.02 % 0.5 mg (ATROVENT) XR CHEST 2V FRONTAL/LAT PLAN: Vital signs stable. Patient is febrile and tachypneic. SpO2 98%. Lungs clear to auscultation bilaterally. Chest x-ray negative for acute pneumonia. DuoNeb treatment given in clinic. Patient continues to have complaints of shortness of breath, dizziness and lightheadedness, and Presyncope following treatment. Discussed with attending. Recommend patient goes to ED for further eval. Rule out PE. Patient did not drive himself and was dropped off. Due to his dizziness, lightheadedness, presyncopal episode, complaints of significant shortness of breath I do not feel comfortable sending him via private conveyance. [facility] was called and he was transported to ED. Rosalind Lord APRN.RETREAD OPERATOR July 12, 2023 9:11 PM This note was generated with voice recognition software and may contain errors, including spelling, grammar, syntax and misrecognition of what was dictated, that are not fully corrected. Ni Ochoa LPN 07/12/2023 9:16 PM Signed DuoNeb given per order via nebulizer. Pt tolerated well. Ni Ochoa LPN Allergies As of Date: 07/12/2023 (No Known Allergies) Date Reviewed: 07/12/2023 Reviewed by: Keila Valenzuela MA - Fully Assessed Reason for Visit: Cough [28] Cmt: States started 3 days. Dry cough with some mucous production. Hx of asthma and Pulmonary sarcoidosis. Using Kalli seltzer and rescue inhaler. Difficulty Breathing [206] Cmt: Reports 3 days. U (more content not included)... Normal [facility] XR CHEST 2V FRONTAL/LATon XR CHEST 2V FRONTAL/LAT * * *Final Report* * * DATE OF EXAM: Jul 12 2023 9:14PM [id number] [id number] - XR CHEST 2V FRONTAL/LAT / PROCEDURE REASON: SOB (shortness of breath) * * * * Physician Interpretation * * * * EXAMINATION: CHEST RADIOGRAPH (2 VIEW FRONTAL and LATERAL) CLINICAL HISTORY: SOB (shortness of breath) MQ: [id number] EXAM DATE/TIME: 07/12/2023 9:14 PM COMPARISON: No relevant prior studies available. RESULT: Lines, tubes, and devices: None. Lungs and pleura: The costophrenic angles are clear. No acute infiltrates or congestion is seen. Cardiomediastinal silhouette: The heart and mediastinum show no acute abnormalities. Bones and soft tissues: There are no acute osseous abnormalities. IMPRESSION: No acute abnormalities. Medical Billing Coordinator: BENJAMÍN Transcribe Date/Time: Jul 14 2023 9:04A Dictated by : YUDI TOMLINSON MD This examination was interpreted and the report reviewed and electronically signed by: YUDI TOMLINSON MD on Jul 14 2023 9:05AM EST [id number] N [facility] XR Chest PA and Lateralon Radiology Study observation (narrative) [facility] Vital Signs Date Time Vital Sign Value Performing Clinician Tae morris 07-12-2023 20:32-0500 Body temperature 100.6 [degF] Rosalind Miglionico FAMILY PRACTITIONER.RETREAD OPERATOR Work Phone: [facility] 07-12-2023 20:32-0500 Body weight 78.93 kg Rosalind Miglionico FAMILY PRACTITIONER.RETREAD OPERATOR Work Phone: [facility] 07-12-2023 20:32-0500 Diastolic blood pressure 73 mm[Hg] Rosalind Miglionico FAMILY PRACTITIONER.RETREAD OPERATOR Work Phone: [facility] 07-12-2023 20:32-0500 Heart rate 73 /min Rosalind Miglionico FAMILY PRACTITIONER.RETREAD OPERATOR Work Phone: [facility] 07-12-2023 20:32-0500 Respiratory rate 28 /min Rosalind Miglionico FAMILY PRACTITIONER.RETREAD OPERATOR Work Phone: [facility] 07-12-2023 20:32-0500 SaO2% (BldA) [Mass fraction] 98 % Rosalind Miglionico FAMILY PRACTITIONER.RETREAD OPERATOR Work Phone: [facility] 07-12-2023 20:32-0500 Systolic blood pressure 110 mm[Hg] Rosalind Miglionico FAMILY PRACTITIONER.RETREAD OPERATOR Work Phone: [facility] Encounters Encounter Date Encounter Type Care Provider Facility Start: 10-19-2024 End: 10-19-2024 ambulatory NONE PHYSICIAN Facility:A Start: 09-22-2024 End: 09-22-2024 Emergency department patient visit [place] Facility:[facility] Start: 04-26-2024 End: 04-26-2024 Emergency department patient visit Antionette Jacques Facility:[facility] Start: 02-14-2024 End: 02-14-2024 Emergency department patient visit NONE PHYSICIAN Facility:A Start: 07-12-2023 Emergency department patient visit ROSALIND LORD Facility:[id number] Start: 07-12-2023 End: 07-12-2023 ambulatory ROSALIND LORD Facility:[id number] Start: 07-12-2023 End: 07-12-2023 Subsequent hospital visit by physician [facility] Work Phone: [facility] Comment on above: COUGH,CHILLS,SOB Start: 07-12-2023 End: 07-12-2023 Patient encounter procedure Rosalind Lord FAMILY PRACTITIONER.RETREAD OPERATOR Work Phone: [facility] Comment on above: SOB (shortness of br eath) (Primary Dx) Procedures Date Procedure Procedure Detail Performing Clinician Start: 07-12-2023 Radiologic exam ches t 2 views Rosalind Rogers FAMILY PRACTITIONER.RETREAD OPERATOR Work Phone: Plan of Treatment Date Care Activity Detail Author Start: 04-07-2024 Covid-19 Vaccine ( season) Covid-19 Vaccine ( season) [facility] Start: 04-07-2024 Influenza vaccination Influenza Vacc ine (#1) [facility] Start: 04-07-2023 Influenza vaccination Influenza Vacc ine (#1) [facility] Start: 2023 Lipid 1996 panel - S jeanna or Plasma Lipid Screening [facility] Start: 2023 Lipid panel Lipid Screening [facility] Start: 08-07-2022 Depression Assessment Depression Ass essment [facility] Start: 2007 Hepatitis B Vaccine (1 of 3 - 19+ 3-dose series) Hepatitis B Vaccine (1 of 3 - 19+ 3-dose series) [facility] Start: 2007 Urine microalbumin profile DTaP,Tdap,Td Vaccine (1 - Tdap) [facility] Start: 2006 Anxiety Screening Anxiety Screening [facility] Start: 2006 Depression Screening Depression Scre ening [facility] Start: 2006 Hepatitis C Screening Hepatitis C [facility] Start: 2006 Hepatitis C screening Hepatitis C [facility] Start: 2006 HIV Screening HIV Screening [facility] Start: 2006 HIV screening HIV Screening [facility] Start: 1988 Covid-19 Vaccine (#1) Covid-19 Vacci ne (#1) [facility] Start: 1988 Hepatitis B Vaccine (1 of 3 - 3-dose series) Hepatitis B Vaccine (1 of 3 - 3-dose series) [facility] End: 08-10-2024 Radiologic exam chest 2 views XR CHEST 2V FRONTAL/LAT Radiology Routine SOB (shortness of breath) 1 Occurrences starting 07/12/2023 until 08/10/2024 [facility] Work Phone: Comment on above: 1 Occurrences starti ng 07/12/2023 until 08/10/2024 Radiologic exam ches t 2 views XR CHEST 2V FRONTAL/LAT Radiology Routine SOB (shortness of breath) 07/12/2023 9:14 PM EST [facility] Work Phone: Payers Date Payer Category Payer Self-pay 2024 Unknown [id number] 2023 Private Health Insurance [facility] CHO[employer] PLUS [id number] 2023-Present [phone] [address] [place] [address] HMO [id number] 2023 Unknown [id number] 1990 Unknown [id number] 1990 Unknown [id number] 1990 Unknown [id number] Unknown [id number] Unknown [id number] Social History Date Type Detail Facility [facility]: [facility] Start: 07-12-2023 Tobacco use and exposure Smoke less tobacco non-user [facility] Start: 07-12-2023 Alcohol intake Ex-drinker (finding) [facility] Start: 07-12-2023 End: 07-13-2023 History of Social function [facility] Start: 07-12-2023 End: 07-13-2023 Tobacco use panel [facility] Start: 1990 Sex Assigned At Not on file [facility] National Score (1-10 0), lower number is lower risk 94 [facility] Progress note 07-12-2023 Note Date & Type Note Facility 07-12-2023 Note HNO ID: [id number] Author: Ni Ochoa LPN Service: ? Author Type: LICENSED NURSE Type: Progress Notes Filed: 07/12/2023 9:16 PM Note Text: DuoNeb given per order via nebulizer. Pt tolerated well. Ni Ochoa LPN [facility] Progress note 07-12-2023 Note Date & Type Note Facility 07-12-2023 Note HNO ID: [id number] Author: Diane Crespo RT(R) Service: Radiology Author Type: Technologist Type: Progress Notes Filed: 07/12/2023 9:02 PM Note Text: Radiology Service Progress Note PATIENT NAME: Roland Wang DATE OF SERVICE: July 12, 2023 TIME: 9:02 PM PATIENT IDENTITY VERIFICATION COMPLETED USING TWO (2) IDENTIFIERS: Name and Date of confirmed by patient verbally. FALL SCREENING: Has the patient had 2 falls in the last year or 1 fall with injury or currently using an Ambulatory Assistive Device (Walker, Cane, Wheelchair, Crutches, etc.)? No PATIENT GENDER DATA: Male PATIENT RELEVANT IMPLANT DATA REVIEWED: Not Applicable RADIOLOGY DEPARTMENT: General X-ray: Exam(s) Completed: Chest X-Ray PERIPHERAL IV DATA: Not applicable SIGNED BY: RT Irvin(R) July 12, 2023 9:[address] [facility] Progress note 07-12-2023 Note Date & Type Note Facility 07-12-2023 Note HNO ID: [id number] Author: Rosalind Lord APRN.RETREAD OPERATOR Service: ? Author Type: Nurse Practitioner Type: Progress Notes Filed: 07/12/2023 9:16 PM Note Text: HPI: Roland Wang is a 33 year old male who presents with 3-day history of fever, chills, dizziness and lightheadedness, headache, nasal congestion and drainage, nonproductive cough, shortness of breath, and diarrhea. He is short of breath at rest and with minimal exertion. Feels rhonchorous but is unable to bring up secretions. Patient has a history of sarcoidosis and asthma. He has been using his rescue inhaler without improvement in his symptoms. He denies known sick contacts, nausea, vomiting, and abdominal pain, sore throat. No past medical history on file. There is no problem list on file for this patient. No current outpatient medications on file. No current facility-administered medications for this visit. Alcohol Use: Not on file Tobacco Use: Not on file No family history on file. Review of Systems Constitutional: Positive for chills and fever. Negative for diaphoresis, malaise/fatigue and weight loss. HENT: Positive for congestion. Negative for ear discharge, ear pain, hearing loss, nosebleeds, sinus pain, sore throat and tinnitus. Eyes: Negative. Respiratory: Positive for cough, sputum production and shortness of breath. Negative for hemoptysis, wheezing and stridor. Cardiovascular: Negative. Gastrointestinal: Positive for diarrhea. Negative for abdominal pain, blood in stool, constipation, heartburn, melena, nausea and vomiting. Genitourinary: Negative. Musculoskeletal: Negative. Skin: Negative. Neurological: Positive for dizziness and headaches. Negative for tingling, tremors, sensory change, speech change, focal weakness, seizures, loss of consciousness and weakness. Endo/Heme/Allergies: Negative. Psychiatric/Behavioral: Negative. All other systems reviewed and are negative. BP 110/73 Pulse 73 Temp 100.6 Resp 28 Wt 174 lb (78.9kg) SpO2 98% Physical Exam Vitals and nursing note reviewed. Constitutional: General: He is not in acute distress. Appearance: Normal appearance. He is normal weight. He is not ill-appearing or toxic-appearing. HENT: Head: Normocephalic. Right Ear: Tympanic membrane, ear canal and external ear normal. Left Ear: Tympanic membrane, ear canal and external ear normal. Nose: Congestion present. Mouth/Throat: Mouth: Mucous membranes are moist. Pharynx: No oropharyngeal exudate or posterior oropharyngeal erythema. Eyes: Extraocular Movements: Extraocular movements intact. Conjunctiva/sclera: Conjunctivae normal. Pupils: Pupils are equal, round, and reactive to light. Cardiovascular: Rate and Rhythm: Normal rate and regular rhythm. Heart sounds: Normal heart sounds. Pulmonary: Effort: Respiratory distress present. Breath sounds: Normal breath sounds. No wheezing or rhonchi. Skin: General: Skin is warm and dry. Neurological: Mental Status: He is alert and oriented to person, place, and time. Clinical Impression ICD-10-CM 1. SOB (shortness of breath) R06.02 albuterol 2.5 mg /3 mL (0.083 %) 2.5 mg (PROVENTIL) ipratropium 0.02 % 0.5 mg (ATROVENT) XR CHEST 2V FRONTAL/LAT PLAN: Vital signs stable. Patient is febrile and tachypneic. SpO2 98%. Lungs clear to auscultation bilaterally. Chest x-ray negative for acute pneumonia. DuoNeb treatment given in clinic. Patient continues to have complaints of shortness of breath, dizziness and lightheadedness, and Presyncope following treatment. Discussed with attending. Recommend patient goes to ED for further eval. Rule out PE. Patient did not drive himself and was dropped off. Due to his dizziness, lightheadedness, presyncopal episode, complaints of significant shortness of breath I do not feel comfortable sending him via private conveyance. Squad was called and he was transported to ED. Rosalind Lord APRN.RETREAD OPERATOR July 12, 2023 9:11 PM This note was generated with voice recognition software and may contain errors, including spelling, grammar, syntax and misrecognition of what was dictated, that are not fully corrected. [facility] History of Present illness Narrative 07-12-2023 Ni Ochoa, AIRCRAFT TECHNICIAN - 07/12/2023 8:53 PM Rosalind Sarmiento APRN.RETREAD OPERATOR - 07/12/2023 8:22 PM EST Note Date & Type Note Facility 07-12-2023 History of Presen t illness Narrative DuoNeb given per order via nebulizer. Pt tolerated well. Ni Ochoa LPN HPI: Roland Wang is a 33 year old male who presents with 3-day history of fever, chills, dizziness and lightheadedness, headache, nasal congestion and drainage, nonproductive cough, shortness of breath, and diarrhea. He is short of breath at rest and with minimal exertion. Feels rhonchorous but is unable to bring up secretions. Patient has a history of sarcoidosis and asthma. He has been using his rescue inhaler without improvement in his symptoms. He denies known sick contacts, nausea, vomiting, and abdominal pain, sore throat. No past medical history on file. There is no problem list on file for this patient. No current outpatient medications on file. No current facility-administered medications for this visit. Alcohol Use: Not on file Tobacco Use: Not on file No family history on file. Review of Systems Constitutional: Positive for chills and fever. Negative for diaphoresis, malaise/fatigue and weight loss. HENT: Positive for congestion. Negative for ear discharge, ear pain, hearing loss, nosebleeds, sinus pain, sore throat and tinnitus. Eyes: Negative. Respiratory: Positive for cough, sputum production and shortness of breath. Negative for hemoptysis, wheezing and stridor. Cardiovascular: Negative. Gastrointestinal: Positive for diarrhea. Negative for abdominal pain, blood in stool, constipation, heartburn, melena, nausea and vomiting. Genitourinary: Negative. Musculoskeletal: Negative. Skin: Negative. Neurological: Positive for dizziness and headaches. Negative for tingling, tremors, sensory change, speech change, focal weakness, seizures, loss of consciousness and weakness. Endo/Heme/Allergies: Negative. Psychiatric/Behavioral: Negative. All other systems reviewed and are negative. BP 110/73 Pulse 73 Temp 100.6 Resp 28 Wt 174 lb (78.9kg) SpO2 98% Physical Exam Vitals and nursing note reviewed. Constitutional: General: He is not in acute distress. Appearance: Normal appearance. He is normal weight. He is not ill-appearing or toxic-appearing. HENT: Head: Normocephalic. Right Ear: Tympanic membrane, ear canal and external ear normal. Left Ear: Tympanic membrane, ear canal and external ear normal. Nose: Congestion present. Mouth/Throat: Mouth: Mucous membranes are moist. Pharynx: No oropharyngeal exudate or posterior oropharyngeal erythema. Eyes: Extraocular Movements: Extraocular movements intact. Conjunctiva/sclera: Conjunctivae normal. Pupils: Pupils are equal, round, and reactive to light. Cardiovascular: Rate and Rhythm: Normal rate and regular rhythm. Heart sounds: Normal heart sounds. Pulmonary: Effort: Respiratory distress present. Breath sounds: Normal breath sounds. No wheezing or rhonchi. Skin: General: Skin is warm and dry. Neurological: Mental Status: He is alert and oriented to person, place, and time. Clinical Impression ICD-10-CM 1. SOB (shortness of breath) R06.02 albuterol 2.5 mg /3 mL (0.083 %) 2.5 mg (PROVENTIL) ipratropium 0.02 % 0.5 mg (ATROVENT) XR CHEST 2V FRONTAL/LAT PLAN: Vital signs stable. Patient is febrile and tachypneic. SpO2 98%. Lungs clear to auscultation bilaterally. Chest x-ray negative for acute pneumonia. DuoNeb treatment given in clinic. Patient continues to have complaints of shortness of breath, dizziness and lightheadedness, and Presyncope following treatment. Discussed with attending. Recommend patient goes to ED for further eval. Rule out PE. Patient did not drive himself and was dropped off. Due to his dizziness, lightheadedness, presyncopal episode, complaints of significant shortness of breath I do not feel comfortable sending him via private conveyance. Squad was called and he was transported to ED. Rosalind Lord APRN.YA July 12, 2023 9:11 PM This note was generated with voice recognition software and may contain errors, including spelling, grammar, syntax and misrecognition of what was dictated, that are not fully corrected. documented in this encounter [facility] History of Present illness Narrative 07-12-2023 Diane Crespo RT(R) - 07/12/2023 8:40 PM EST Note Date & Type Note Facility 07-12-2023 History of Presen t illness Narrative Radiology Service Progress Note PATIENT NAME: Roland Wang DATE OF SERVICE: July 12, 2023 TIME: 9:02 PM PATIENT IDENTITY VERIFICATION COMPLETED USING TWO (2) IDENTIFIERS: Name and Date of confirmed by patient verbally. FALL SCREENING: Has the patient had 2 falls in the last year or 1 fall with injury or currently using an Ambulatory Assistive Device (Walker, Cane, Wheelchair, Crutches, etc.)? No PATIENT GENDER DATA: Male PATIENT RELEVANT IMPLANT DATA REVIEWED: Not Applicable RADIOLOGY DEPARTMENT: General X-ray: Exam(s) Completed: Chest X-Ray PERIPHERAL IV DATA: Not applicable SIGNED BY: RT Irvin(R) July 12, 2023 9:02 PM documented in this encounter [facility] Evaluation note Note Date & Type Note Facility Evaluation note Diagnosis SOB (shortness of breath)- Primary Shortness of breath documented in this encounter [facility] Evaluation note Note Date & Type Note Facility Evaluation note Diagnosis SOB (shortness of breath) Shortness of breath documented in this encounter [facility] Medications Administered Section Inactive Administered Medications - up to 3 most recent administrations Medication Order MAR Action Action Date Dose Rate Site albuterol 2.5 mg /3 mL (0.083 %) 2.5 mg (PROVENTIL) 2.5 mg, INHALATION, ONCE, 1 dose, On Mon07/12/23 at 2100 Given 07/12/2023 8:48 PM EST 2.5 mg ipratropium 0.02 % 0.5 mg (ATROVENT) 0.5 mg, INHALATION, ONCE, 1 dose, On Mon07/12/23 at 2100 Given 07/12/2023 8:53 PM EST 0.5 mg Summary Purpose Family History No Family History Records FoundNo Family History Records FoundNo Family History Records FoundNo Family History Records FoundNo Family History Records Found Advance Directives No Advanced Directives Records FoundNo Advanced Directives Records FoundNo Advanced Directives Records FoundNo Advanced Directives Records FoundNo Advanced Directives Records Found Additional Source Comments Source Comments (unrecognize d section and content) In the event this informatio n is protected by the [facility][Note 3] Confidentiality of Alcohol and Drug Abuse Patient Records regulations: The Federal rules restrict any use of the information to criminally investigate or prosecute any alcohol or drug abuse patient.[facility] the event this information is protected by the Federal Confidentiality of Alcohol and Drug Abuse Patient Records regulations: The Federal rules restrict any use of the information to criminally investigate or prosecute any alcohol or drug abuse patient.[facility] Reason for Visit (unrecogniz ed section and content) Reason Comments Cough States started 3 day s. Dry cough with some mucous production. Hx of asthma and Pulmonary sarcoidosis. Using Kalli seltzer and rescue inhaler. Difficulty Breathing Reports 3 days. Savita ble to catch his breathe, Hx of asthma and pulmonary sarcoidosis. chills/body ahces 3 days. (unrecognized sect ion and content) No Status Records FoundNo Status Records FoundNo Status Records FoundNo Status Records FoundNo Status Records Found INFORMATION SOURCE (unrecogn ized section and content) DATE CREATED AUTHOR 07/15/2023 [facility] DATE CREATED AUTHOR AUTHOR'S ORGANIZ ATION 03/06/2024 [facility] ([place]) DATE CREATED AUTHOR AUTHOR'S ORGANIZ ATION [facility] DATE CREATED AUTHOR AUTHOR'S ORGANIZ ATION 10/06/2024 [facility] DATE CREATED AUTHOR AUTHOR'S ORGANIZ ATION 11/08/2024 [facility] FOR RECORDS PERTAINING TO PATIENTS WHO ARE OR HAVE BEEN ENROLLED IN A CHEMICAL DEPENDENCY/SUBSTANCEABUSE PROGRAM, SOME INFORMATION MAY BE OMITTED. This clinical summary was aggregated from multiple sources. Caution should be exercised in using it in the provision of clinical care. This summary normalizes information from multiple sources, and as a consequence, information in this document may materially change the coding, format and clinical context of patient data. In addition, data may be omitted in some cases. CLINICAL DECISIONS SHOULD BE BASED ON THE PRIMARY CLINICAL RECORDS. [facility] [employer] [facility]. provides no warranty or guarantee of the accuracy or completeness of information in this document.
[2025-04-11] MEDS: Albuterol 2.5 MG/3 ML VIAL.NEB. INHALATION (23:20)
[2025-04-11 23:28] VITALS: PULSE 79; RESP 16
--- NOTE | 2025-04-11 23:57 | EX.ED.DYSGE1 ---
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 He is presenting with flulike illness. Patient states he started to have congestion and bodyaches yesterday. It is worsened throughout the day and he is also coughing. He states he has a headache secondary to coughing and pain when he coughs. He has associated sore throat and congestion. Has had some mild nausea. Denies any vomiting or diarrhea. Denies any abdominal pain. Denies any ear pain. No fevers reported. Last had ibuprofen at 5 PM. Does not have an inhaler at home. States he has a coworker that has been sick and coughing on him and he thinks that is where he got sick from. No other complaints or concerns reported at this time. [facility] PFS Medical History no medical history Home Medications ?Medication ?Instructions ?Recorded ?Last Taken ?Type albuterol sulfate 90 mcg/actuation 1 - 2 puff inhalation Q4H PRN PRN 04/12/25 Unknown Rx aerosol inhaler (Ventolin HFA) Wheezing #1 inh prednisone 20 mg tablet 40 mg (2 x 20 mg) PO DAILY #10 tabs 04/12/25 Unknown Rx Allergy/AdvReac Type Severity Reaction Status Date / Time No Known Allergies Allergy Verified 04/11/25 21:37 Surgical History no surgical history Social History Smoking Status: Current every day smoker tobacco type: cigarettes ROS ROS ED Constitutional Constitutional ED: Reports other Details: Fatigue ; Denies chills or fever(s) ENT ENT ED: Reports sore throat and other Details: Nasal congestion ; Denies ear pain Cardiovascular Cardiovascular: Denies chest pain Respiratory/Chest Respiratory/Chest: Reports cough and other Details: Feels that he is wheezing ; Denies dyspnea Gastrointestinal Gastrointestinal: Reports nausea; Denies abdominal pain, constipation, diarrhea or vomiting Musculoskeletal Musculoskeletal: Reports myalgias; Denies arthralgias Integumentary Denies rash Neurologic Neurologic: Reports headache(s) and weakness EXAM Physical Exam Const Vital Signs: 04/11/25 21:37 04/11/25 21:53 04/11/25 23:28 Temperature 98.6 F Temperature Source Oral Pulse Rate 89 79 Respiratory Rate 14 16 Respiratory Effort Normal Non-Labored Respiratory Pattern Normal Normal Blood Pressure 119/66 Blood Pressure Mean 83 Pulse Ox 98 Oxygen Delivery Method Room Air Positive well nourished and well developed General Appearance ED: well developed and NAD HEENT Reports moist mucous membranes HEENT Narrative: Mild nasal congestion present. Normal tympanic membranes bilaterally. Normal oropharynx. Eyes PERRL Neck no lymphadenopathy and supple Neck Narrative: No meningeal signs Chest Wall inspection of chest normal and palpation of chest normal Resp normal respiratory effort Resp Narrative: Mild expiratory scattered wheeze present. Breath sounds throughout. No crackles appreciated. No increased work of breathing Cardio regular rate, regular rhythm and no murmurs GI normal to inspection, nondistended, normoactive bowel sounds and non-tender Extremity normal to inspection General Extremety ED: Negative for edema General Extremity: Negative for edema Neuro oriented x3 Sensorium / Orientation: alert Motor Exam: general weakness Psych mental status grossly normal Skin no rashes or lesions noted MDM MDM MDM Narrative Medical decision making narrative: Patient is evaluated for under 2 days of URI symptoms with associated cough. Reports a history of pulmonary sarcoidosis. Differential includes asthma exacerbation, reactive airway, viral illness. He has equal bilateral breath sounds with no hypoxia and is only a 24 hours of symptoms with a low suspicion pneumonia. Do not think x-rays indicated this time. Patient is given dose of Tylenol in emergency room. Patient is given albuterol breathing treatment emergency room. COVID flu and RSV is obtained as patient would be antiviral candidate with his pulmonary history. This is negative. Suspect he has another viral illness. Will be given a [id number] prescription for prednisone in case he has worsening wheezing/reactive airway. Counseled on alternating ibuprofen, Tylenol and [id number] cold and flu medication. Given a work note for this weekend. Given return precautions. Given referral for primary care. Discharged home in stable condition. Patient has normal vital signs the emergency room with no hypoxia or increased work of breathing. I do not think he requires further emergent workup at this time. He is not reporting any chest pain except when he coughs and this does not sound like ACS. Do not think he needs a cardiac workup at this time. Lab Data Attestation: I reviewed the patient's lab results. Discharge Plan Triage Chief Complaint: Cold Sx ED Provider: Antionette Jacques Dx/Rx/DC Orders Clinical Impression: Acute viral syndrome Instructions: ED URI, Viral W/ Wheezing (Adult) Prescriptions: New prednisone 20 mg tablet 40 mg PO DAILY Qty: 10 0RF albuterol sulfate [Ventolin HFA] 90 mcg/actuation HFA aerosol inhaler 1 - 2 puff inhalation Q4H PRN PRN (Reason: Wheezing) Qty: 1 0RF Stand Alone Forms: ED Work / School Excuse Primary Care Provider: Care Physician,No Primary Referrals: Care Physician,No Primary [Primary Care Provider] - Phong Schulte, INSTRUCTOR [employer] [[facility] - Activity Restrictions/Additional Instructions: Expect of a viral syndrome is causing your symptoms. Your test was negative for COVID, influenza and RSV. You been given inhaler to help with cough and wheezing. If you are having worsening wheezing or bronchitis symptoms please start taking the steroids that you have been prescribed. In the meantime alternate ibuprofen and Tylenol for fever and bodyaches. You may use [id number] cough and cold medicine such as Tylenol Cold and flu to help with your symptoms. If you have worsening symptoms please return to the emergency room. Print Language: Mauritanian Disposition Disposition: Home, Self Care
[2025-04-12 00:31] VITALS: BP 110/68; PULSE 62; RESP 18; TEMP 36.6; O2SAT 100
== END 2025-04-12 00:32 | disposition home or self-care (01) ==
PROVIDERS: Emergency Provider Emergency Medicine; Visit Provider Emergency Medicine
DX: B34.9 Viral infection, unspecified (principal); F17.210 Nicotine dependence, cigarettes, uncomplicated
CPT/HCPCS: 87631; 94640; 99282